=== PATIENT | female | born 1995 | race Caucasian/White ===

== ENCOUNTER 2018-01-18 23:10 | Emergency (ER) | payer BC ==
[2018-01-19] MEDS ORDERED: IBUPROFEN 600 MG TABLET PO ONE (01:15)
--- NOTE | 2018-01-19 01:21 | ER Document Report ---
ED ENT - General Chief Complaint: Nasal Congestion Stated Complaint: FEVER,SORE THROAT Time Seen by Provider: 01/19/18 00:23 Mode of Arrival: Ambulatory Information source: Patient TRAVEL OUTSIDE OF THE [place] IN LAST 30 DAYS: No - HPI Patient complains to provider of: Throat problem Notes: Patient is here with complaints of right ear pain, sore throat, congestion, intermittent headaches, fevers for last week. She states that the nasal congestion has been normal for little bit longer she has been taking Claritin. States over the last few days she has had some intermittent headaches and has been feeling hot and cold and having sweats. She never actually took her temperature to see what her temperature was. She has been taking Tylenol which seems to improve her symptoms. She denies any blurred or loss vision. She denies any head injury. She denies any blood thinners. She denies any unilateral numbness, tingling, weakness. No chest pain or shortness of breath. No abdominal pain. She denies any nausea, vomiting, diarrhea. No neck stiffness. She has been taking Claritin with the Tylenol seems to be helping some. - Related Data Allergies/Adverse Reactions: clindamycin Allergy (Verified 01/18/18 23:17) Past Medical History - Social History Smoking Status: Never Smoker Chew tobacco use (# tins/day): No Frequency of alcohol use: None Drug Abuse: None Family History: None Patient has suicidal ideation: No Patient has homicidal ideation: No Endocrine Medical History: Reports: Hx Hyperthyroidism Renal/ Medical History: Denies: Hx Peritoneal Dialysis Past Surgical History: Reports: Hx Tonsillectomy Review of Systems - Review of Systems -: Yes All other systems reviewed and negative Physical Exam - Vital signs Vitals: Temp Pulse Resp BP Pulse Ox 98.7 F 89 16 126/74 H 96 01/18/18 23:19 01/18/18 23:19 01/18/18 23:19 01/18/18 23:19 01/18/18 23:19 - Notes Notes: GENERAL: alert, cooperative, nontoxic, no distress. HEAD: normocephalic, atraumatic EYES: conjunctiva pink without discharge, no external redness or swelling. EARS: no external swelling, no external redness, no mastoid redness, swelling, tenderness. Ear canals are clear without swelling or drainage. TMs pearly bravo , no redness, no bulging, normal landmarks, no perforation. Clear effusion behind the right TM. NOSE: atraumatic, no external swelling. clear rhinorrhea noted. MOUTH/THROAT: mucous membranes moist and pink, posterior pharynx without erythema, swelling, exudate. No trismus or drooling. Voice is normal. No peritonsillar abscess. NECK: soft, supple, full range of motion, no meningismus. Bilateral anterior cervical lymphadenopathy right greater than left. CHEST: no distress, lungs clear and equal throughout. No wheezing, rales, rhonchi. CARDIAC: regular rate and rhythm, no murmur, normal capillary refill, normal pulses. No peripheral edema noted. BACK: full range of motion, no CVA tenderness. EXTREMITIES: full range of motion of all extremities. No redness, no swelling. NEURO: alert and oriented A&O3, no focal deficits, full range of motion of all extremities. Cranial nerves II through XII are grossly intact. PYSCH: appropriate mood, affect. Patient is cooperative. SKIN: pink, warm, dry, no rash. Course - Re-evaluation Re-evalutation: 01/19/18 01:17 Patient is nontoxic appearing with stable vitals. She arrives with URI symptoms with sore throat right ear pain intermittent headaches for the last approximate week. She has been feeling febrile for the last several days with hot and cold feelings as well as becoming diaphoretic. On exam she has no focal findings. She is noted to have clear effusion behind the right TM consistent with eustachian tube dysfunction. There is no sign of infection. Throat exam is benign. Voice is normal. She has a nonfocal neurological exam. Rapid strep is negative. Patient will be given ibuprofen here prior to discharge. She will be discharged home with a prescription for Naprosyn and Flonase. She instructed to continue taking Tylenol as needed as well as her antihistamine. Follow-up if not better in the next 5 days, sooner for worsening pain, high fever, numbness, tingling, weakness, persistent vomiting, neck stiffness, or for any further concerns. Patient has no signs of significant source of her headache, no peritonsillar abscess, no epiglottitis, meningitis, no sign of subarachnoid hemorrhage. The patient is noted to have elevated blood pressure during today's emergency department visit. The patient was informed of this finding. The patient was instructed that this may be related to pre-hypertension and requires further evaluation with a primary care provider. The patient has no hypertensive symptoms at this time. The patient's emergency department workup and current diagnosis were explained to the patient and or family. Follow-up instructions were provided. Medications if prescribed were discussed. Instructions for when to return to the emergency department including specific worrisome symptoms were discussed with the patient and/or family. - Vital Signs Vital signs: Temp Pulse Resp BP Pulse Ox 98.7 F 89 16 126/74 H 96 01/18/18 23:19 01/18/18 23:19 01/18/18 23:19 01/18/18 23:19 01/18/18 23:19 Discharge - Discharge Clinical Impression: Sore throat (viral) Eustachian tube dysfunction Qualifiers: Laterality: right Qualified Code(s): H69.81 - Other specified disorders of Eustachian tube, right ear URI (upper respiratory infection) Qualifiers: URI type: unspecified viral URI Qualified Code(s): J06.9 - Acute upper respiratory infection, unspecified Condition: Stable Disposition: HOME, SELF-CARE Instructions: Upper Respiratory Illness ([facility]), Sore Throat ([facility]), Family Physicians / Practices Additional Instructions: Take medications as prescribed. Continue using your antihistamine as well as Tylenol. Drink plenty of fluids. Follow-up if not better in 5 days, sooner for worsening symptoms, temperature above 101, persistent vomiting, numbness, tingling, weakness, neck stiffness, difficulty breathing or swallowing, significant neck swelling, or for any further concerns. Your blood pressure was elevated during today's visit. Have this rechecked with your doctor. Prescriptions: Fluticasone Propionate [Flonase Nasal [place] 50 Mcg/[place] 16 gm] 1 spray NASL Q12 #1 inhaler Naproxen [Naprosyn] 500 mg PO BID #20 tablet Forms: Elevated Blood Pressure Referrals: [facility] [Provider Group] - Follow up as needed
[2018-01-19 01:40] VITALS: BP 119/73
== END 2018-01-19 01:38 | disposition home or self-care (01) ==
LOC: ER 23:10
DX: J06.9 Acute upper respiratory infection, unspecified (principal); H69.81 Other specified disorders of Eustachian tube, right ear; J02.9 Acute pharyngitis, unspecified; R09.81 Nasal congestion; R50.9 Fever, unspecified; R51 Headache
CPT/HCPCS: 87070; 87880; 99283